=== PATIENT | male | born 1940 | race Caucasian/White ===

== ENCOUNTER 2017-07-28 11:03 | Emergency (ER) | payer MEDICARE, BC ==
[2017-07-28 11:27] VITALS: PULSE 64; O2SAT 97
--- NOTE | 2017-07-28 12:03 | XRAY ---
Indication: Pain following twisting injury. Comparison: None 3 nonweightbearing views of the left foot demonstrates small spurring of the plantar calcaneus and distal tibia anteriorly and tiny accessory ossicles posterior to the talus and adjacent to the cuboid. No other bony, bony, articular, or soft tissue abnormalities. Soft tissues unremarkable. Impression: Nonacute left foot with chronic features.
--- NOTE | 2017-07-28 12:06 | XRAY ---
Indication: Pain following twisting injury. Comparison: None 3 views of the left ankle demonstrates medial malleolar tiny well-circumscribed ossification either degenerative versus old injury. Small spurring of the plantar calcaneus and distal tibia anteriorly. Posterior talar accessory ossicle. No other bony, bony, articular, or soft tissue abnormalities. Soft tissues unremarkable. Impression: Nonacute left ankle with chronic features.
--- NOTE | 2017-07-28 12:46 | ERPHSYRPT ---
- History of Present Illness Time Seen by Provider: 07/28/17 11:30 Source: patient, family ( and nephew) Patient Subjective Stated Complaint: PT states "I was working in the barn and i slipped and was hanging by my hands and dropped down to my feet and stepped on something and my left foot rolled up and under." Triage Nursing Assessment: Pt alert and oriented X 3, skin pwd. Pt ambulates with a limp, left ankle swollen and tender to touch. Physician History: CC: left foot injury Hx: 77 y/o patient of Dr Herrmann at [place]. He was working on a rafter and fell. Hung from rafter. Fell about two feet onto left foot/ankle. No other injuries. No neck or back pain. No N/T/W. Pain is moderate in left foot/ankle. He has hx of AICD and HTN. Occurred: this morning Quality: constant Lower Extremities Pain: foot: left, ankle: left Allergies/Adverse Reactions: No Known Drug Allergies Allergy (Unverified 07/28/17 11:27) Home Medications: Aspirin [Aspir-Low] 81 mg PO DAILY 07/28/17 [History] Carvedilol 6.25 mg [Coreg 6.25 MG] 6.25 mg PO BID 07/28/17 [History] Lisinopril 5 mg [Zestril 5 MG] 5 mg PO DAILY 07/28/17 [History] Sulfasalazine 500 mg [Azulfidine 500 mg] 500 mg PO DAILY 07/28/17 [History ] Vit C/E/Zn/Coppr/Lutein/Zeaxan [Preservision Areds 2 Softgel] 1 each PO DAILY [History] Hx Tetanus, Diphtheria Vaccination/Date Given: Yes Hx Influenza Vaccination/Date Given: Yes Hx Pneumococcal Vaccination/Date Given: Yes Immunizations Up to Date: Yes - Review of Systems Constitutional: No Symptoms Respiratory: No Dyspnea Cardiac: No Chest Pain Abdominal/Gastrointestinal: No Abdominal Pain, No Nausea, No Vomiting Musculoskeletal: Injury (left foot/ankle), No Back Pain, No Neck Pain Neurological: No Focal Weakness, No Headache, No Parasthesia All Other Systems: Reviewed and Negative - Past Medical History Pertinent Past Medical History: Yes Neurological History: No Pertinent History ENT History: Cataracts Cardiac History: Coronary Artery Disease, Other Respiratory History: Bronchitis Endocrine Medical History: No Pertinent History Musculoskeletal History: Arthritis GI Medical History: Colitis, GERD, Ulcer History: No Pertinent History Psycho-Social History: No Pertinent History Male Reproductive Disorders: No Pertinent History - Past Surgical History Past Surgical History: Yes Neuro Surgical History: No Pertinent History Cardiac: Internal Defibrillator, Other Respiratory: No Pertinent History Gastrointestinal: No Pertinent History Other Surgical History: bilat knee. left thumb - Social History Smoking Status: Former smoker Exposure to second hand smoke: Yes Drug Use: none Patient Lives Alone: No - Nursing Vital Signs Nursing Vital Signs: Initial Vital Signs Temperature 97.5 F 07/28/17 11:17 Pulse Rate 64 07/28/17 11:17 Respiratory Rate 16 07/28/17 11:17 Blood Pressure 140/96 07/28/17 11:17 O2 Sat by Pulse Oximetry 97 07/28/17 11:17 Pain Scale Pain Intensity 2 - Physical Exam General Appearance: alert, other (pleasant man) Eyes, Ears, Nose, Throat Exam: normal ENT inspection, moist mucous membranes Neck Exam: normal inspection, non-tender, supple Cardiovascular/Respiratory Exam: chest non-tender, normal breath sounds, regular rate/rhythm Gastrointestinal/Abdominal Exam: non-tender, soft Back Exam: normal inspection, No vertebral tenderness Hips Exam: bilateral: non-tender, normal inspection Legs Exam: bilateral leg: non-tender, normal inspection Knees Exam: bilateral knee: non-tender, normal inspection Ankle Exam: right ankle: non-tender, normal inspection Foot Exam: right foot: non-tender, normal inspection Neuro/Tendon Exam: normal sensation, normal motor functions Mental Status Exam: alert, oriented x 3, cooperative Skin Exam: warm, dry SpO2 Interpretation: normal SpO2: 97 Oxygen Delivery: Room Air Comments: tender left lateral malleolus and plantar foot. No calcaneal tenderness. Pulse intact. Skin intact. Reports up to date tetanus vaccine. - Course Nursing assessment & vital signs reviewed: Yes - Radiology Exams left foot/ankle X-ray Interpretation: Teleradiologist Report, Negative, No Fracture Ordered Tests: Active Orders 24 hr Category Date Time Status Doug Bandage Application -[facility] STAT Care 07/28/17 12:40 Active Cold Application STAT Care 07/28/17 11:35 Active Splint STAT Care 07/28/17 12:40 Active ANKLE (3 VIEWS) Stat Exams 07/28/17 11:35 Completed FOOT (MINIMUM 3 VIEWS) Stat Exams 07/28/17 11:36 Completed - Progress Progress Note: 07/28/17 12:44 He declines pain meds here. Will use APAP or ibuprofen at home. Will use doug and air cast. He has crutches at home if needed. Counseled pt/family regarding: diagnosis, need for follow-up, rad results - Departure Time of Disposition: 12:44 Departure Disposition: Home Clinical Impression: fall from rafter, Contusion of left foot Condition: Stable Critical Care Time: No Referrals: KENDALL HERRMANN MD [Primary Care Provider] - Instructions: Ankle Sprain (DC) Additional Instructions: SPRAINS/STRAINS/CONTUSIONS 1. Rest the affected area as much as possible for the next few days. 2. Apply ice to the affected area for 20-30 minutes at a time, several times a day. 3. If you receive an elastic wrap, wear it only while awake for comfort and support. Re-wrap the elastic wrap if it feels too tight or too loose. 4. If swelling is present, elevate the affected part above the level of the heart for at least 2 to 3 days. 5. Use splints, slings, or crutches as instructed. 6. Watch for severe swelling, coldness, numbness, and discoloration of the fingers and toes. See your family physician or return to the emergency department if any of these are noted. Use tylenol or ibuprofen as directed. Follow up with Dr Sin next week if not better. Doug and air cast for support and comfort.
[2017-07-28 12:56] VITALS: BP 128/72
== END 2017-07-28 12:56 ==
LOC: ED 11:03
DX: S90.32XA Contusion of left foot, initial encounter (principal); W17.89XA Other fall from one level to another, initial encounter; Y92.71 Barn as the place of occurrence of the external cause; I25.10 Atherosclerotic heart disease of native coronary artery without angina pectoris; K21.9 Gastro-esophageal reflux disease without esophagitis; Z87.891 Personal history of nicotine dependence
CPT/HCPCS: 73610; 73630; 99283